=== PATIENT | male | born 1960 ===

== ENCOUNTER 2017-10-19 09:51 | Day surgery (SDC) | payer BC ==
[2017-10-19 10:35] VITALS: O2SAT 100
[2017-10-19] MEDS ORDERED: Propofol 10 mg/ml Inj (20 ML) ONE (12:49)
[2017-10-19] MEDS ORDERED: Midazolam 2 MG/2 ML VIAL ONE (12:49)
[2017-10-19 13:12] VITALS: TEMP 98
[2017-10-19 14:22] VITALS: BP 121/80; PULSE 91; RESP 18
== END 2017-10-19 14:15 | disposition home or self-care (01) ==
LOC: C.ENDO 09:51
PROVIDERS: ATTEND Internal Medicine
DX: R10.13 Epigastric pain (principal); K20.8 Other esophagitis; K44.9 Diaphragmatic hernia without obstruction or gangrene; K29.70 Gastritis, unspecified, without bleeding; E11.9 Type 2 diabetes mellitus without complications; I10 Essential (primary) hypertension; Z79.84 Long term (current) use of oral hypoglycemic drugs; K21.9 Gastro-esophageal reflux disease without esophagitis; E78.00 Pure hypercholesterolemia, unspecified; Z83.3 Family history of diabetes mellitus; Z82.49 Family history of ischemic heart disease and other diseases of the circulatory system; Z83.42 Family history of familial hypercholesterolemia
CPT/HCPCS: 43239; 82948; 88305; 88313; 88342; J2001; J2250; J2704